=== PATIENT | female | born 1995 | race Caucasian/White ===

== ENCOUNTER 2017-10-25 10:01 | Outpatient (CLI) | payer BC | END 2017-10-25 10:02 | disposition home or self-care (01) | LOC: BICULT 10:01 | PROVIDERS: ATTEND Family Medicine | DX: R11.0 Nausea (principal) | CPT/HCPCS: 76705 ==

== ENCOUNTER 2017-11-01 11:28 | Outpatient (CLI) | payer BC ==
--- NOTE | 2017-11-01 14:46 | NM ---
HEPATOBILIARY SCAN: Date: 11/01/17 HISTORY: Nausea and vomiting, unspecified. No gallstones on ultrasound of 10/25/17. RADIOPHARMACEUTICAL: 5 mCi technetium-99m mebrofenin injected intravenously. FINDINGS: There is good tracer extraction by the liver with prompt excretion into the biliary tract and small b owel loops, and normal filling of the gallbladder. The calculated gallbladder ejection fraction follo wing an oral fatty meal measures 57%. IMPRESSION: Normal exam. POS: [facility]
== END 2017-11-01 11:29 | disposition home or self-care (01) ==
LOC: NM 11:28
PROVIDERS: ATTEND Family Medicine
DX: D89.89 Other specified disorders involving the immune mechanism, not elsewhere classified (principal); R11.2 Nausea with vomiting, unspecified
CPT/HCPCS: 78227; A9537

== ENCOUNTER 2018-10-25 12:58 | Emergency (ER) | payer BC ==
[2018-10-25] MEDS ORDERED: Ketorolac Tromethamine 30 MG/ML VIAL ONE (13:59)
== END 2018-10-25 14:22 | disposition home or self-care (01) ==
LOC: SCSER 12:58
DX: S13.4XXA Sprain of ligaments of cervical spine, initial encounter (principal); V89.2XXA Person injured in unspecified motor-vehicle accident, traffic, initial encounter
CPT/HCPCS: 96372; J1885